=== PATIENT | male | born 1985 | race Caucasian/White ===

== ENCOUNTER 2017-06-10 07:41 | Emergency (ER) | payer BC ==
[2017-06-10 07:53] VITALS: BP 147/94; TEMP 98.6; O2SAT 98
[2017-06-10] MEDS ORDERED: predniSONE 20 MG TAB PO ONE (07:56)
[2017-06-10] MEDS ORDERED: DEXAMETHASONE INJ 4 MG/ML VIAL IM ONE (07:56)
--- NOTE | 2017-06-10 07:56 | ED.PDOC ---
History of Present Illness - General Chief Complaint: Skin/Abrasion/Tear Stated Complaint: Rash Time Seen by Provider: 06/10/17 07:52 Source: patient Exam Limitations: no limitations - History of Present Illness Initial Comments: Javed Landa 31 y/o male stated that he developed pruritic erythematous rash on his left arm and chest [place] [employer] [place].He stated swimming but could not recal coming in contact with plant or using new sunscreen. Timing/Duration: yesterday Severity: mild Location: torso, extremities Improving Factors: nothing Worsening Factors: nothing Associated Symptoms: itching Allergies/Adverse Reactions: Allergies NO KNOWN ALLERGY Allergy (Verified 06/10/17 07:52) Home Medications: Ambulatory Orders Prednisone 10 mg PO BID #14 maddy 06/10/17 Triamcinolone 0.1% Oint [Kenalog 0.1% Ointment] 90 gm TOP BID #1 tube 06/10/17 Review of Systems - Review of Systems Constitutional: States: no symptoms reported EENTM: States: no symptoms reported Respiratory: States: no symptoms reported Cardiology: States: no symptoms reported Gastrointestinal/Abdominal: States: no symptoms reported Musculoskeletal: States: no symptoms reported Skin: States: see HPI Neurological: States: no symptoms reported Endocrine: States: no symptoms reported Past Medical History (General) - Patient Medical History Hx Asthma: No Hx Hypertension: No Hx Diabetes: No Surgical History: no surgical history - Social History Hx Tobacco Use: Yes Hx Alcohol Use: Yes - socially Family Medical History - Family History Father Living Status: Still Living Hx Family Hypertension: Yes Hx Cardiac Disease: Yes Physical Exam - Physical Exam General Appearance: Alert, No apparent distress Eyes, Ears, Nose, Throat Exam: PERRL/EOMI, normal ENT inspection, TMs normal, pharynx normal Neck: non-tender, full range of motion, supple Cardiovascular/Chest: normal peripheral pulses, regular rate, rhythm, no edema, no murmur Respiratory: chest non-tender, lungs clear, normal breath sounds Gastrointestinal/Abdominal: normal bowel sounds, non tender, soft, no organomegaly Back Exam: normal inspection, no CVA tenderness Extremity: non-tender, normal inspection, no pedal edema, no calf tenderness Neurologic: alert, oriented x 3 Skin Exam: warm/dry, normal color Skin Problem Location: torso, lower extremities Skin Character: erythema, macules, papules, urticarial Lymphatic: no adenopathy Progress - Progress Progress: 06/10/17 07:59 Vital Signs - 8 hr 06/10/17 07:52 Temperature 98.6 F Pulse Rate [ 84 Left Radial] Respiratory 18 Rate Blood Pressure 147/94 [Right Arm] O2 Sat by Pulse 98 Oximetry Departure - Departure Clinical Impression: Contact dermatitis Qualifiers: Contact dermatitis type: unspecified Contact dermatitis cause: unspecified agent Qualified Code(s): L25.9 - Unspecified contact dermatitis, unspecified cause Time of Disposition: 08:00 Disposition: Discharge to Home or Self Care Condition: Good Departure Forms: ED Discharge - Pt. Copy, Patient Portal Self Enrollment Instructions: Contact Dermatitis, DI for Contact Dermatitis Prescriptions: Prednisone 10 mg PO BID #14 maddy Triamcinolone 0.1% Oint [Kenalog 0.1% Ointment] 90 gm TOP BID #1 tube Home Medications: Ambulatory Orders Prednisone 10 mg PO BID #14 maddy 06/10/17 Triamcinolone 0.1% Oint [Kenalog 0.1% Ointment] 90 gm TOP BID #1 tube 06/10/17 Additional Instructions: Return to emergency room as needed EXCUSE FROM WORK TODAY 06/11/2017 RETURN TO REGULAR WORK TOMORROW WITHOUT RESTRICTIONS
== END 2017-06-10 08:19 | disposition home or self-care (01) ==
LOC: ER 07:41
DX: L25.9 Unspecified contact dermatitis, unspecified cause (principal)
CPT/HCPCS: J1100; J7512